=== PATIENT | female | born 1950 | race Caucasian/White ===

== ENCOUNTER 2016-09-18 05:43 | Emergency (ER) | payer OTHER, BC ==
[~2016-09-18] VITALS: Ht 160 cm; Wt 55.0 kg
[~2016-09-18 05:43] MED LIST: AMBIEN5 MG PO; AMITRIPTYLINE H50 MG PO; ASPIR-LOW81 M1 PO; ATORVASTATIN CA40 MG PO; BISOPROLOL FUMA10 MG PO; CARVEDILOL12.5 MG PO; CARVEDILOL25 MG PO; CHERATUSSIN AC473 ML PO; CLARITIN10 M3 PO; COREG25 M1 PO; COUMADIN10 MG PO; COUMADIN5 MG PO; COUMADIN7.5 MG PO; COZAAR25 MG PO; CYANOCOBALAM1000 MCG PO; Coumadin,Jantoven PO; Cozaar PO; DIGITEK125 MC2 PO; DIGOX125 MCG PO; FISH OIL 1,0001 EAC7 PO; FISH OIL 1,2001 EAC3 PO; FOLIC ACID1 MG PO; FORTAMET500 M1 PO; FUROSEMIDE40 MG PO; Folvite PO; IRON325 M1 PO; K-DUR20 MEQ PO; KEFLEX500 MG PO; LASIX20 MG PO; LASIX40 MG PO; LO-DOSE ASPIRIN81 M1 PO; LOSARTAN POTAS100 MG PO; Levaquin PO; Lovenox SC; METFORMIN HCL500 MG PO; METHIMAZOLE10 MG PO; PERCOCET 5/31 TABLET PO; PRAVACHOL40 MG PO; PROTONIX40 MG PO; PT/INR 0; Protonix PO; SERTRALINE HCL50 MG PO; SPIRONOLACTONE25 MG PO; TRIAMCINOLONE A15 GM TP; TYLENOL EXTRA500 MG PO; VITAMIN B12-FO1 EACH PO; WARFARIN SODIU7.5 MG PO
[2016-09-18 06:49] LABS: HEMATOCRIT 46.7 % (36.0-46.0); MCH 30.8 PG (29.0-34.0); MCHC 32.3 G/DL (30.0-36.0); MCV 95.1 FL (83-99); MEAN PLAT.VOLUME 10.7 uM^3 (9.5-12.4); PLATELET COUNT 182 K/uL (156-360); RBC DIS.WIDTH-CV 13.3 % (11.8-14.6); RBC DIS.WIDTH-SD 47.5 % (39-53); RED BLOOD COUNT 4.91 M/uL (3.80-5.20)
[2016-09-18 06:52] LABS: WHITE BLOOD COUNT 6.8 K/uL (4.1-10.2)
[2016-09-18 07:46] LABS: ANION GAP 15 MEQ/L (2-14); CHLORIDE 102 MEQ/L (99-109); POTASSIUM 4.8 MEQ/L (3.7-5.4); SAMPLE HEMOLYSIS CHECK 0; SAMPLE ICTERIC CHECK 0; SAMPLE LIPEMIA CHECK 0; SODIUM 139 MEQ/L (136-147)
[2016-09-18 07:52] LABS: GFR ESTIMATE (CALCULATED) > 59 mL/min/; GLUCOSE 150 mg/dL (70-99); UREA NITROGEN (BUN) 18 mg/dL (9-23)
[2016-09-18 07:53] LABS: TROP-I INTERPRETATION NEGATIVE; TROPONIN-I 0.02 ng/mL (0.0-0.30)
[2016-09-18 08:04] LABS: ADD MIUA? YES; BILIRUBIN SMALL; BLOOD NEGATIVE; COLOR AMBER ((YELLOW)); GLUCOSE (STRIP) NEGATIVE; KETONES 5; LEUKOCYTES NEGATIVE; NITRITE NEGATIVE; PROTEIN (STRIP) >=500; SPECIFIC GRAVITY 1.025 (1.000-1.030)
[2016-09-18 08:22] LABS: BACTERIA NONE SEEN /HPF; EPITHELIAL CELLS 1+ /HPF; HYALINE CASTS 0-5 /LPF; MUCUS 1+ /LPF; WHITE BLOOD CELLS 0-5 /HPF (0-5)
[2016-09-18] MEDS ORDERED: HYCODAN SYRUP480 ML PO (10:49)
[2016-09-18] MEDS ORDERED: ZITHROMAX250 MG PO (10:49)
[2016-09-18 11:07] VITALS: BP 109/61
[2016-09-18 12:59] LABS: INFLUENZA A VIRAL ANTIGEN NEGATIVE; INFLUENZA B VIRAL ANTIGEN NEGATIVE
== END 2016-09-18 11:30 | disposition home or self-care (01) ==
LOC: EME 05:43
PROVIDERS: Nurse Practitioner Family
DX: J18.0 Bronchopneumonia, unspecified organism (principal); J32.9 Chronic sinusitis, unspecified
CPT/HCPCS: 71020; 80048; 81003; 84484; 85027; 87502; 93005; 94640; 99281; 99285; J7030

== ENCOUNTER → 2016-10-24 | Outpatient (CLI) | payer OTHER, BC ==
[~2016-10-24] MED LIST changes: +HYCODAN SYRUP480 ML PO; +ZITHROMAX250 MG PO
== END | disposition home or self-care (01) ==
LOC: RAD 10:47
DX: I51.7 Cardiomegaly (principal); I31.3 Pericardial effusion (noninflammatory); M47.9 Spondylosis, unspecified; Z95.810 Presence of automatic (implantable) cardiac defibrillator
CPT/HCPCS: 71250